=== PATIENT | male | born 1950 | race American Indian/Alaskan Native ===

== ENCOUNTER 2018-03-20 16:36 | Emergency (ER) | payer OTHER ==
[~2018-03-20] VITALS: Ht 170.2 cm; Wt 73.0 kg
[2018-03-20 17:13] LABS: ABSOLUTE BASOPHIL COUNT 0 /CUMM (0.0-0.2); ABSOLUTE EOSINOPHIL COUNT 0.4 /CUMM (0.0-0.7); ABSOLUTE GRANULOCYTE CT 5.6 /CUMM (1.4-6.5); ABSOLUTE LYMPH COUNT 1.8 /CUMM (1.2-3.4); BASOPHIL % 0.3 % (0.0-2.0); EOSINOPHIL % 4.2 % (0-5); GRANULOCYTE % 63.7 % (42.2-75.2); HEMATOCRIT 42.8 % (42-52); MEAN CORPUSCULAR HGB 32.1 PG (27.0-31.0); MEAN CORPUSCULAR HGB CONC 33.7 G/DL (33.0-37.0); MEAN CORPUSCULAR VOLUME 95.4 FL (80.0-94.0); MEAN PLATELET VOLUME 7.2 FL (7.4-10.4); PLATELET COUNT 270 /CUMM (130-400); RBC DISTRIBUTION WIDTH 14.1 % (11.5-14.5); RED BLOOD CELL CT 4.48 /CUMM (4.70-6.10); WHITE BLOOD CELL COUNT 8.8 /CUMM (4.8-10.8)
[2018-03-20 17:18] LABS: PT 11.9 SEC (9.4-12.5)
--- NOTE | 2018-03-20 17:33 | ED CARDIAC/CP/PALPITATIONS ---
History of Present Illness General Chief Complaint: Chest Pain Stated Complaint: PT IS HAVING CHEST PAIN Source: patient, family, old records Exam Limitations: no limitations Vital Signs & Intake/Output Vital Signs & Intake/Output Vital Signs Date Time Temp Pulse Resp B/P B/P Pulse O2 O2 Flow FiO2 Mean Ox Delivery Rate 03/20 1929 98.7 63 20 140/84 98 Room Air 03/20 1648 97.8 71 18 122/76 98 Room Air Allergies Coded Allergies: No Known Allergies (03/20/18) Core Measure Meds Pre-Hospital aspirin Triage Note: PT STATES HE WASN'T DOING ANYTHING JUST SITTING AT HIS COMPUTER AND HE BEGAN TO HAVE CHEST PAIN THAT LASTED ABOUT 1/2 HOUR TO 4O MINUTES. PT STATES HE FELT PRESSURE IN HIS CHEST THAT HAS SINCE STOPPED. PT TOOK AN ASA 81 MG AND STATES HE THINKS THAT IS WHAT MADE IT GO AWAY. PT STATES HE HAD A STRESS TEST ABOUT 1 YEAR AGO AND WAS TOLD THAT HE HAS A BLOCKAGE SO HE WAS NERVOUS. PT STATES HE ALSO HAS A STENT. PT DENIES SOB OR RADIATING PAIN. Triage Nurses Notes Reviewed? yes Onset: Just prior to arrival Duration: minute(s):, constant, gone now Timing: recent history Quality/Severity: tightness Location: substernal Radiation: no radiation Activities at Onset: rest Prior Chest Pain/Card Workup: cardiac cath, echocardiography, stress test Modifying Factors: Improves With: rest. Nitro Today/Relief: no nitro taken today Aspirin Today: 81 mg x 1, provided at home HPI: One hour prior to admission while at rest patient complains of substernal chest pain described as tightness mild to moderate in severity similar to previous heart pain nonradiating resolving after 30 minutes with rest. He denies fever chills nausea vomiting diarrhea abdominal pain shortness breath headache dysuria rash bleeding. Past History Travel History Traveled to [place] past 21 day No Medical History Any Pertinent Medical History? see below for history Cardiovascular: hypertension, hyperlipidemia Surgical History Surgical History: non-contributory Psychosocial History What is your primary language Urdu Tobacco Use: Quit >30 days ago ETOH Use: denies use Illicit Drug Use: denies illicit drug use Family History Hx Contributory? No Review of Systems Review of Systems Constitutional: Reports: no symptoms. EENTM: Reports: no symptoms. Respiratory: Reports: no symptoms. Cardiovascular: Reports: see HPI, chest pain. GI: Reports: no symptoms. Genitourinary: Reports: no symptoms. Musculoskeletal: Reports: no symptoms. Skin: Reports: no symptoms. Neurological/Psychological: Reports: no symptoms. Hematologic/Endocrine: Reports: no symptoms. Immunologic/Allergic: Reports: no symptoms. All Other Systems: Reviewed and Negative Physical Exam Physical Exam General Appearance: well developed/nourished, alert, awake, anxious, comfortable Head: atraumatic, normal appearance Eyes: Bilateral: normal appearance, PERRL, EOMI. Ears, Nose, Throat: normal pharynx, normal ENT inspection, hearing grossly normal Neck: normal inspection, supple, full range of motion, no midline tenderness Respiratory: normal breath sounds, chest non-tender, no respiratory distress, quiet respiration, lungs clear Cardiovascular: regular rate/rhythm, normal peripheral pulses, norml femoral pulses equa Peripheral Pulses: 4+ carotid (R), 4+ carotid (L) Gastrointestinal: normal bowel sounds, soft, non-tender, no organomegaly Back: normal inspection, normal range of motion, no vertebral tenderness Extremities: normal inspection, normal capillary refill, normal range of motion, no edema Neurologic/Psych: no motor/sensory deficits, awake, alert, oriented x 3, normal gait, normal mood/affect, tile setter II-XII nml as tested Reflexes: 2+: bicep (R), bicep (L). Skin: intact, normal color, warm/dry Lymphatic: no anterior cervical liliane Core Measures ACS in differential dx? Yes No ASA d/t Pharmacological CI CVA/TIA Diagnosis No Sepsis Present: No Sepsis Focused Exam Completed? No Progress Differential Diagnosis: CHF/pulm edema, costochondritis, hyperkalemia, hypovolemia, hyperthyroid, pneumonia Plan of Care: Orders Procedure Date/time Status TROPONIN LEVEL 03/20 2000 Complete EKG 03/20 2000 Active EKG 03/20 181 Active Add-on Test (ER Only) 03/20 1659 Active TSH REFLEX 03/20 1647 Complete TROPONIN LEVEL 03/20 164 Complete PROTHROMBIN TIME 03/20 1647 Complete MAGNESIUM 03/20 1647 Complete COMPREHENSIVE METABOLIC PANEL 03/20 164 Complete CBC WITHOUT DIFFERENTIAL 03/20 164 Complete EKG 03/20 1637 Active Laboratory Tests 03/20/18 1955: Troponin I < 0.01 03/20/18 1817: Troponin I Cancelled 03/20/18 1700: Anion Gap 9, Estimated GFR > 60, BUN/Creatinine Ratio 22.9, Glucose 98, Calcium 8.9, Magnesium 2.0, Total Bilirubin 0.6, AST 20, ALT 24, Alkaline Phosphatase 68 , Troponin I < 0.01, Total Protein 6.9, Albumin 3.8, Globulin 3.1, Albumin/ Globulin Ratio 1.2, TSH &T3 &Free T4 Intrp 0.910, PT 11.9, INR 1.09, CBC w Diff NO MAN DIFF REQ, RBC 4.48 L, MCV 95.4 H, MCH 32.1 H, MCHC 33.7, RDW 14.1, MPV 7.2 L, Gran % 63.7, Lymphocytes % 20.9, Monocytes % 10.9 H, Eosinophils % 4.2, Basophils % 0.3, Absolute Granulocytes 5.6, Absolute Lymphocytes 1.8, Absolute Monocytes 1.0 H, Absolute Eosinophils 0.4, Absolute Basophils 0 Initial ED EKG: normal axis, normal intervals, normal p-waves, normal QRS complex, normal sinus rhythm, no ST T wave changes Prior EKG: unchanged Repeat EKG: unchanged Rhythm Strip: normal sinus rhythm Departure Departure Time of Disposition: 2042 Disposition: HOME OR SELF CARE Condition: Stable Clinical Impression Primary Impression: Chest pain syndrome Referrals: Livan LINTON,Jan Lawson MD,Be Menjivar (PCP/Family) Departure Forms: Customer Survey General Discharge Information Critical Care Note Critical Care Note Critical Care Time: non-applicable
--- NOTE | 2018-03-20 17:42 | RADIOLOGY REPORT ---
EXAMINATION: XR CHEST CLINICAL INFORMATION: Chest pain. COMPARISON: Chest x-ray 12/16/2006 TECHNIQUE: 2 views of the chest were obtained. FINDINGS: Lungs are clear. No pulmonary vascular congestion. There is no pleural effusion. The heart size is normal. The cardiac and mediastinal contours are normal. Thoracic aorta is uncoiled. There are multilevel degenerative changes of dorsal spine. Compared to prior chest x-ray there has been no change. IMPRESSION: Unremarkable examination.
[2018-03-20 20:45] VITALS: BP 145/91
== END 2018-03-20 20:53 ==
LOC: ERH 16:36
PROVIDERS: Physician Assistant Medical
DX: R07.1 Chest pain on breathing (principal)
CPT/HCPCS: 71046; 93005; 93010